=== PATIENT | female | born 1955 | race Caucasian/White ===

== ENCOUNTER 2022-01-07 08:21 | Emergency (ER) | payer OTHER ==
--- OUTSIDE RECORDS SUMMARY | 2022-01-07 08:24 | XMS REPORT | Continuity of Care Document ---
:1955 Author Organization [facility] t Address [address] [place] [address] Care Team Providers Name Role Phone Unavailable Unavailable Unavailable Payers Payer Name Policy Type Policy Number Effective Date Expiration Date S pee [employer] MEDICARE ADV [id number] 2019 00:00:00 Problems This patient has no known problems. Allergies, Adverse Reactions, Alerts Allergy Allergy Status Severity Reaction(s) Onset Inactive Treating Comm ents Source Name Type Date Date Clinician [facility] DRUG Active High Rash 2020-0 [facility]I 2-17 ity of 00:00: [place] 00 [facility] SULFA Drug Active High Rash 2020-0 [facility] (SULFONA Class 2-17 ity of MIDE 00:00: [place] [facility]) Branch Medications This patient has no known medications. Procedures This patient has no known procedures. Encounters Start End Encounter Admission Attending Care Care Encounter Source Date/Time Date/Time Type Type Clinicians Facility Department ID 2020-12-26 2020-12-26 Outpatient R [facility] [id number] Univers 08:40:00 08:40:00 [id number] ity [facility] 2020-12-26 2020-12-26 Outpatient R [facility] [id number] Univers 08:40:00 08:40:00 ity [facility] 2020-12-13 2020-12-13 Outpatient R [facility] [id number] [facility] 18:20[facility]00 [id number]-13 Outpatient R [facility] [id number] Univers 18:20:00 18:20:00 [facility] Results This patient has no known results.
[2022-01-07] MEDS ORDERED: IBUPROFEN 200 MG TAB PO ONE ×2 (08:52→08:56)
[2022-01-07] MEDS ORDERED: IBUPROFEN 400 MG TAB ONE (08:53)
--- NOTE | 2022-01-07 10:10 | RAD REPORT ---
EXAM DESCRIPTION: RAD - Chest Single View - 01/07/2022 9:28 am CLINICAL HISTORY: COUGH COMPARISON: None TECHNIQUE: AP portable chest image was obtained 01/07/2022 9:28 am . FINDINGS: Lungs are clear. Interstitial pattern in each base is mildly prominent but not outside of range of normal for a baseline examination. Heart and vasculature are normal. No measurable pleural e ffusion and no pneumothorax. No acute bony abnormality seen. No acute aortic findings suspected. IMPRESSION: No acute cardiopulmonary process.
[2022-01-07 10:27] LABS: SARS-COV-2 RT PCR NEGATIVE (NEGATIVE)
--- NOTE | 2022-01-07 10:29 | ER ---
Nurse's Notes [facility] Name: Georgina Lopez Age: 66 yrs Sex: Female : 1955 Arrival Date: 01/07/2022 Time: 08:26 Bed 6 Private MD: Gordo Sims V Diagnosis: Acute sinusitis, unspecified;Acute laryngopharyngitis Presentation: 01/07 08:30 Chief complaint: Patient states: cough, sore throat, loss of smell began x 3 days ago. vg1 Denies NVD. Coronavirus screen: Vaccine status: Patient reports receiving the 2nd dose of the covid vaccine. Client denies travel out of the [place] in the last 14 days. cough unrelated to allergies, sore throat, loss of taste or smell, Client presents with at least one sign or symptom that may indicate coronavirus-19. Standard/surgical mask placed on the client. Ebola Screen: Patient negative for fever greater than or equal to 101.5 degrees Fahrenheit, and additional compatible Ebola Virus Disease symptoms. Initial Sepsis Screen: Does the patient meet any 2 criteria? No. Patient's initial sepsis screen is negative. Does the patient have a suspected source of infection? No. Patient's initial sepsis screen is negative. Risk Assessment: Do you want to hurt yourself or someone else? Patient reports no desire to harm self or others. Onset of symptoms was January 04, 2022. 08:30 Method Of Arrival: Ambulatory vg1 08:30 Acuity: GRACE 4 vg1 Triage Assessment: 08:31 General: Appears in no apparent distress. comfortable, Behavior is calm, cooperative. vg1 Pain: Denies pain. Respiratory: Reports cough that is productive, Airway is patent Respiratory effort is even, unlabored. Historical: - Allergies: 08:31 PENICILLINS; vg1 08:31 Sulfa (Sulfonamide Antibiotics); vg1 08:31 Moderna COVID-19 Vaccine (EUA); vg1 - Home Meds: 08:31 Lipitor Oral [Active]; Multiple Vitamins oral [Active]; Boniva oral [Active]; vg1 - PMHx: 08:31 Hypercholesterolemia; Osteoporosis; vg1 - Immunization history:: Client reports receiving the 2nd dose of the Covid vaccine. - Social history:: Smoking status: Patient denies any tobacco usage or history of. - Family history:: not pertinent. - Hospitalizations: : No recent hospitalization is reported. Screenin:40 Abuse screen: Denies threats or abuse. Denies injuries from another. Nutritional tyler screening: No deficits noted. Tuberculosis screening: No symptoms or risk factors identified. Fall Risk None identified. Assessment: 08:36 General: Appears in no apparent distress. Behavior is calm, cooperative. Pain: tyler Complains of pain in face sinus congestion. Respiratory: Reports cough that is cold sore, sore throat, lost of taste and smell. Vital Signs: 08:30 BP 126 / 60; Pulse 104; Resp 16; Temp 99.0(O); Pulse Ox 100% ; Weight 57.61 kg; Height vg1 5 ft. 2 in. (157.48 cm); Pain 0/10; 08:54 BP 130 / 77; Pulse 97; Resp 16; Pulse Ox 98% on R/A; tyler 09:57 BP 117 / 79; Pulse 82; Resp 18; Pulse Ox 100% on R/A; tyler 08:30 Body Mass Index 23.23 (57.61 kg, 157.48 cm) vg1 ED Course: 08:26 Patient arrived in ED. as 08:26 Gordo Sims MD is Private Physician. as 08:29 Jessee Lagunas MD is Attending Physician. rn 08:31 Triage completed. vg1 08:31 Arm band placed on. vg1 08:40 Patient has correct armband on for positive identification. Bed in low position. tyler 08:40 No provider procedures requiring assistance completed. tyler 08:48 Alexandra Serna, RN is Primary Nurse. tyler 08:54 COVID-19/FLU A+B (Document "Date of Onset" if Symptomatic) Sent. tyler 09:28 XRAY Chest (1 view) In Process Unspecified. EDMS 10:40 Patient did not have IV access during this emergency room visit. tyler Administered Medications: 08:53 Drug: Motrin (ibuprofen) 800 mg Route: PO; tyler 08:54 Follow up: Response: No adverse reaction tyler Outcome: 10:29 Discharge ordered by MD. rn 10:40 Discharged to home tyler 10:40 Condition: good 10:40 Discharge instructions given to patient, family, Prescriptions given X 1. 10:40 Patient left the ED. tyler Signatures: Dispatcher [employer] EDKirti Wheatley Lagunas, Jessee, MD MD rn Paco, RACHAEL Cook RN vg1 Asha-ErikarAlexandra RN RN tyler Corrections: (The following items were deleted from the chart) 08:33 08:31 PMHx: Hypertensive disorder; vg1 vg1
--- NOTE | 2022-01-07 10:29 | EDPHYS ---
Physician Documentation [facility] Name: Georgina Lopez Age: 66 yrs Sex: Female : 1955 Arrival Date: 01/07/2022 Time: 08:26 Bed 6 Private MD: Gordo Sims V ED Physician Jessee Lagunas HPI: 01/07 08:44 This 66 yrs old Female presents to ER via Ambulatory with complaints of Cough, sinus rn pressure, congestion. 08:44 The patient or guardian reports cough, that is intermittent, described as mild, with no rn sputum, flu symptoms, low-grade fever, myalgias. Onset: The symptoms/episode began/occurred 3 day(s) ago. Severity of symptoms: At their worst the symptoms were mild, in the emergency department the symptoms are unchanged. Modifying factors: The symptoms are alleviated by nothing, the symptoms are aggravated by nothing. Associated signs and symptoms: Pertinent positives: fever, rhinorrhea, sore throat, Pertinent negatives: chest pain, diarrhea. The patient has not experienced similar symptoms in the past. The patient has been recently seen by a physician:. Pt reports 3 days of cough/congestion/myalgias. Reports just recently lost her taste, prompting her to come in for evaluation. NO sob. NO chronic respiratory problems. No known sick contacts. . Historical: - Allergies: 08:31 PENICILLINS; vg1 08:31 Sulfa (Sulfonamide Antibiotics); vg1 08:31 Moderna COVID-19 Vaccine (EUA); vg1 - Home Meds: 08:31 Lipitor Oral [Active]; Multiple Vitamins oral [Active]; Boniva oral [Active]; vg1 - PMHx: 08:31 Hypercholesterolemia; Osteoporosis; vg1 - Immunization history:: Client reports receiving the 2nd dose of the Covid vaccine. - Social history:: Smoking status: Patient denies any tobacco usage or history of. - Family history:: not pertinent. - Hospitalizations: : No recent hospitalization is reported. 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 Exam: 08:44 Constitutional: This is a well developed, well nourished patient who is awake, alert, rn and in no acute distress. Ambulatory to room without difficulty or assistance. Head/Face: Normocephalic, atraumatic. Eyes: Pupils equal round and reactive to light, extra-ocular motions intact. Lids and lashes normal. Conjunctiva and sclera are non-icteric and not injected. Cornea within normal limits. Periorbital areas with no swelling, redness, or edema. ENT: MMM, no stridor Cardiovascular: Tachycardic, regular. No pulse deficits. Respiratory: Speaking full sentences. No increased work of breathing, no retractions or nasal flaring. Abdomen/GI: Soft, non-tender Skin: Warm, dry MS/ Extremity: Pulses equal, no cyanosis. Neuro: Awake and alert, GCS 15 Vital Signs: 08:30 BP 126 / 60; Pulse 104; Resp 16; Temp 99.0(O); Pulse Ox 100% ; Weight 57.61 kg; Height vg1 5 ft. 2 in. (157.48 cm); Pain 0/10; 08:54 BP 130 / 77; Pulse 97; Resp 16; Pulse Ox 98% on R/A; tyler 09:57 BP 117 / 79; Pulse 82; Resp 18; Pulse Ox 100% on R/A; tyler 08:30 Body Mass Index 23.23 (57.61 kg, 157.48 cm) vg1 MDM: 08:29 Patient medically screened. rn 10:28 Differential Diagnosis: Bronchitis Influenza Upper Respiratory Infection Sinusitis rn Pharyngitis Viral Syndrome. Differential Diagnosis: Pneumonia. Data reviewed: vital signs, nurses notes. Counseling: I had a detailed discussion with the patient and/or guardian regarding: the historical points, exam findings, and any diagnostic results supporting the discharge/admit diagnosis, lab results, radiology results, the need for outpatient follow up, to return to the emergency department if symptoms worsen or persist or if there are any questions or concerns that arise at home. Special discussion: I discussed with the patient/guardian in detail that at this point there is no indication for admission to the hospital. It is understood, however, that if the symptoms persist or worsen the patient needs to return immediately for re-evaluation. 01/07 08:36 Order name: COVID-19/FLU A+B (Document "Date of Onset" if Symptomatic); Complete Time: rn 10:27 01/07 08:42 Order name: XRAY Chest (1 view); Complete Time: 10:12 rn Administered Medications: 08:53 Drug: Motrin (ibuprofen) 800 mg Route: PO; tyler 08:54 Follow up: Response: No adverse reaction tyler Disposition Summary: 01/07/22 10:29 Discharge Ordered Location: Home rn Problem: new rn Symptoms: have improved rn Condition: Stable rn Diagnosis - Acute sinusitis, unspecified rn - Acute laryngopharyngitis rn Followup: rn - With: Private Physician - When: As needed - Reason: Recheck today's complaints, Re-evaluation by your physician Discharge Instructions: - Discharge Summary Sheet rn - Pharyngitis rn - Sinusitis, Adult rn - Upper Respiratory Infection, Adult rn Forms: - Medication Reconciliation Form rn - Thank You Letter rn - Antibiotic triage rn - Prescription Opioid Use rn Prescriptions: - Zithromax Z-Shen 250 mg Oral Tablet - take 1 tablet by ORAL route as directed for 5 days Day 1 - take two (2) tablets rn one time. Day 2, 3, 4 , 5 take one (1) tablet once daily.; 6 tablet; Refills: 0, Product Selection Permitted Signatures: Dispatcher [employer] EDJessee Pope MD MD rn Garcia, Victoria, RN RN 1 Alexandra Serna RN RN tyler Corrections: (The following items were deleted from the chart) 08:33 08:31 PMHx: Hypertensive disorder; vg1 vg1
[2022-01-07 11:34] VITALS: TEMP 99
[2022-01-07 11:37] VITALS: BP 117/79; O2SAT 100
== END 2022-01-07 10:40 | disposition home or self-care (01) ==
LOC: ER 08:21
DX: J01.90 Acute sinusitis, unspecified (principal); J06.0 Acute laryngopharyngitis; Z20.822 Contact with and (suspected) exposure to COVID-19; E78.00 Pure hypercholesterolemia, unspecified; Z88.0 Allergy status to penicillin; Z88.2 Allergy status to sulfonamides; Z88.7 Allergy status to serum and vaccine
CPT/HCPCS: 0240U; 71045; 99284